=== PATIENT | female | born 1955 | race Caucasian/White ===

== ENCOUNTER 2018-05-31 19:48 | Emergency (ER) | payer BC, SELFPAY ==
[2018-05-31 19:53] VITALS: BP 137/76; PULSE 62; RESP 20; O2SAT 99; BMI 25.0
--- NOTE | 2018-05-31 19:56 | ED.FEMALEGU ---
HPI - Female Genitourinary General Chief complaint: Urogenital-Female Stated complaint: Kidney Stones Time Seen by Provider: 05/31/18 19:56 Source: patient Mode of arrival: ambulatory Limitations: no limitations History of Present Illness HPI Narrative: 63-year-old female here for evaluation of left-sided flank pain that is radiating around to her left lower abdomen. She states that 2 weeks ago she saw her primary care doctor worsened back pain and had blood in her urine. She was not started on any antibiotics. Was started on tamsulosin. Was told that she most likely had a kidney stone. Is scheduled for a CT scan to evaluate for this tomorrow. She states she has had a kidney stone in the past that passed on its own many years ago. She states that several hours ago she started having pain in her left abdomen. Some nausea and vomiting. No fevers. She states that she feels like she has a lot of problems urinating. No bowel changes. Related Data Previous Rx's Medication Instructions Recorded hydrocodone-acetaminophen [[place]] 1 tab PO Q4-6H PRN #10 tab 05/31/18 ondansetron [Zofran ODT] 4 mg PO Q6-8H PRN #10 tab 05/31/18 Allergies Allergy/AdvReac Type Severity Reaction Status Date / Time erythromycin base Allergy Verified 05/31/18 19:59 Review of Systems Constitutional Denies fever(s) Cardiovascular Denies chest pain and Denies dyspnea Respiratory Denies dyspnea Gastrointestinal Gastrointestinal: Reports abdominal pain (Lower left), Denies cramping, Denies diarrhea, Reports nausea and Reports vomiting Genitourinary Denies dysuria, Denies urinary incontinence, Reports urinary hesitancy and Denies vaginal discharge Musculoskeletal Reports back pain (Left CVA tenderness) Integumentary/Breasts Denies lesions and Denies rash Hematologic/Lymphatic Denies easy bleeding and Denies easy bruising [facility] Medical History Kidney stones (Acute) Surgical History No pertinent past surgical history (Acute) Social History Smoking Status: Never smoker Exam Initial Vital Signs Initial Vital Signs: Vital Signs Pulse Rate 62 10/07/18 19:53 Respiratory Rate 20 05/31/18 19:53 Blood Pressure 137/76 05/31/18 19:53 Pulse Oximetry 99 05/31/18 19:53 Const General: cooperative, No comfortable (Uncomfortable), well developed and well groomed Orientation: alert, awake and oriented x3 HENMT Head: normal to inspection and normocephalic Resp Effort & Inspection: normal respiratory effort Auscultation: clear to auscultation bilaterally Cardio Rate: regular rate Rhythm: regular rhythm GI Inspection: non-distended Palpation: soft and tender (Left lower quadrant) Back/Spine/Pelvis Back: No CVA tenderness Skin Lesions: no lesions Rashes: no rashes Neuro General: alert, awake and oriented x3 Extrem General: normal to inspection Psych Appearance: grossly normal and well kempt Course Orders Ordered: ED Orders 05/31/18 20:19 Urine Microscopic Stat 05/31/18 20:35 Comprehensive Metabolic Panel Stat 05/31/18 21:18 CT kidney ureter bladder (KUB) Stat Discontinued Medications Hydrocodone Bitart/Acetaminophen (Vicodin Prepack) 1 bottle MISC SEEINSTR ONE Stop: 05/31/18 23:57 Last Admin: 06/01/18 00:01 Dose: 1 bottle Lidocaine HCl 5.4 ml/ Sodium (Chloride) 55.4 mls @ 332.4 mls/hr IV NOW ONE Stop: 05/31/18 20:08 Last Infusion: 05/31/18 21:04 Dose: 0 mls/hr Admin: 05/31/18 20:45 Dose: 332.4 mls/hr Ketorolac Tromethamine (Toradol) 30 mg IV NOW ONE Stop: 05/31/18 20:08 Last Admin: 05/31/18 20:45 Dose: 30 mg Ondansetron HCl (Zofran Odt Prepack) 1 bottle MISC SEEINSTR ONE Stop: 05/31/18 23:57 Last Admin: 06/01/18 00:01 Dose: 1 bottle Vital Signs - 8 hr 05/31/18 19:53 05/31/18 20:44 05/31/18 21:30 Pulse Rate 62 68 73 Respiratory Rate 20 25 H 16 Blood Pressure 137/76 Blood Pressure [Left Arm] 110/76 117/71 Pulse Oximetry 99 96 95 05/31/18 22:00 05/31/18 22:46 05/31/18 23:54 Pulse Rate 73 65 72 Respiratory Rate 22 14 14 Blood Pressure Blood Pressure [Left Arm] 119/77 118/72 125/73 Pulse Oximetry 95 95 96 MDM - Female Genitourinary Lab Data Attestation: I reviewed the patient's lab results. Result diagrams: 05/31/18 20:35 Lab Results 05/31/18 05/31/18 Range/Units 20:19 20:35 Sodium 141 (137-145) mmol/L Potassium 3.8 (3.4-5.1) mmol/L Chloride 103 (98-107) mmol/L Carbon Dioxide 27 (22-32) mmol/L BUN 21 H (7-17) mg/dL Creatinine 0.90 (0.52-1.04) mg/dL Estimated GFR > 60.0 (>60) mL/min BUN/Creatinine Ratio 23.3 H (6-22) Glucose 118 H (80-110) mg/dL Calcium 9.8 (8.4-10.2) mg/dL Total Bilirubin 0.7 (0.2-1.3) mg/dL AST 36 (14-36) IU/L ALT 55 H (9-52) IU/L Alkaline Phosphatase 97 (38-126) U/L Total Protein 7.3 (6.3-8.2) g/dL Albumin 4.5 (3.5-5.0) g/dL Globulin 2.8 (1.7-4.1) g/dL Albumin/Globulin Ratio 1.6 (1.0-2.8) Urine RBC 10-30/hpf H (0-5/HPF) Urine WBC 5-10/hpf H (0-5/HPF) Ur Squamous Epith Cells 1-5 /hpf Calcium Oxalate Crystal Moderate H (None) Urine Bacteria Occasional (0-1) (None) Hyaline Casts 0-1/lpf (None) Urine Mucus 3+ H (Negative) Ur Culture Indicated? Cult not indicated Micro UA Comment Not Reportable Urine Dip Bedside Urine Glucose Negative Bedside Urine Bilirubin - Negative Bedside Urine Ketone +/- 5 Urine Specific [place] 1.030 Bedside Urine Occult Blood + Bedside Urine pH 6.0 Bedside Urine Protein + 30 Bedside Urine Urobilinogen - Negative Bedside Urine Nitrite - Negative Bedside Urine Leukocytes - Negative Esterase Imaging Data CT scan - abdomen: Radiologist's impression: Obstructing calculus of the left ureteral pelvic junction measuring 4 mm. Normal appendix. Small accessory spleen. MDM Narrative Medical decision making narrative: Patient with blood and bacteria in her urine however no signs of urinary tract infection. This was cultured. Will hold on antibiotics for now. Patient was informed of the pending culture. Patient has a normal creatinine. Had a complete resolution of her pain after the medications here in the emergency department. CT scan does show a [address] scan was done because the patient was scheduled to have a CT scan performed tomorrow ordered by her primary doctor. I informed the patient that we did not necessarily need a CT here in the ER however if she was going to go ahead and get the CT scan done tomorrow we could do it here and save her a trip. She opted to have a CT scan performed here. She was given a copy of the preliminary report and also a copy of the pictures on the CD. Patient was given return precautions. She was given a prepack of nausea medication and pain medication she was given prescriptions for both of these as well. Patient and her both expressed understanding and agreement with plan. Discharge Plan Departure Patient Disposition: Home Clinical Impression: Renal colic on left side, Left ureteral calculus Instructions: Kidney Stones (Alternative Therapy), DI for Kidney Stones Activity Restrictions/Additional Instructions: Keep all of your scheduled medical appointments. Take all medications as directed and as needed. Return to the emergency department for any new symptoms, worsening symptoms, fevers, inability to urinate or any other concerning symptoms. Prescriptions: New hydrocodone-acetaminophen [[place]] 5-325 mg tablet 1 tab PO Q4-6H PRN (Reason: pain) Qty: 10 RF: 0 ondansetron [Zofran ODT] 4 mg tablet,disintegrating 4 mg PO Q6-8H PRN (Reason: nausea and vomiting) Qty: 10 RF: 0
[2018-05-31 20:44] VITALS: BP 110/76; PULSE 68; RESP 25; O2SAT 96
[2018-05-31] MEDS: KETOROLAC 60 MG/2 ML VIAL 30 MG IV (20:45)
[2018-05-31] MEDS: LIDOCAINE 2% 5.4 ML in SODIUM CHLORIDE 0.9% 50 ML 332.4 ML IV (20:45)
--- NOTE | 2018-05-31 20:53 | PC.NURSE ---
pt reports having kidney stones in the past. this stone has been bothering her for a few weeks and she has a CT scheduled for tomorrow at . Pt reports having a stone in the past sent to pathology and being told it was made up of calcium. she has limited calcium and vit D intake since but has had reoccuring stones.
[2018-05-31 20:55] LABS: Alanine Aminotransferase 55 IU/L (9-52); Albumin 4.5 g/dL (3.5-5.0); Albumin Globulin Ratio 1.6 (1.0-2.8); Alkaline Phosphatase 97 U/L (38-126); Aspartate Aminotransferase 36 IU/L (14-36); BUN Creatinine Ratio 23.3 (6-22); Bilirubin Total 0.7 mg/dL (0.2-1.3); Blood Urea Nitrogen 21 mg/dL (7-17); Calcium 9.8 mg/dL (8.4-10.2); Carbon Dioxide 27 mmol/L (22-32); Chloride 103 mmol/L (98-107); Estimated Glomerular Filt Rate > 60.0 mL/min (>60); Globulin 2.8 g/dL (1.7-4.1); Glucose 118 mg/dL (80-110); HEMOLYSIS < 15 (0-50); Potassium 3.8 mmol/L (3.4-5.1); Sodium 141 mmol/L (137-145); Total Protein 7.3 g/dL (6.3-8.2)
--- NOTE | 2018-05-31 21:18 | DI.CT.S_ITS ---
PROCEDURE: CT KIDNEY URETER BLADDER (KUB) INDICATIONS: left flank pain concern for stone TECHNIQUE: Noncontrast 5 mm thick sections acquired from the diaphragms to the symphysis. 5 mm thick coronal and sagittal reformats were then performed. For radiation dose reduction, the following was used: automated exposure control, adjustment of mA and/or kV according to patient size. COMPARISON: None. FINDINGS: Image quality: Excellent. Lung bases: There is mild dependent atelectasis bilaterally. Heart size is normal. Urinary system: There is a small obstructing urinary stone at the left ureteropelvic junction measuring approximately 5 mm with mild left hydronephrosis. There is mild associated fat stranding adjacent to the renal pelvis. No additional renal stones identified. No right hydronephrosis. Both ureters appear non-dilated throughout their expected courses. The urinary bladder is nondistended. No calcified bladder stones. Other solid organs: There is a small hypodensity within the anterior left hepatic lobe measuring approximately 6 mm which is too small to characterize but likely represents a cyst. The gallbladder appears within normal limits without calcified gallstones. Pancreas is normal in contours. Spleen is normal in size. A small accessory spleen is noted. No adrenal nodules. Peritoneum and bowel: Unenhanced bowel loops demonstrate normal wall thickness and caliber. The appendix is normal in appearance. No free fluid or air. Nodes and vessels: No retroperitoneal or mesenteric adenopathy by size criteria. Aorta and inferior vena cava are normal in caliber. Abdominal wall: No ventral hernias. Pelvis: No free pelvic fluid. No inguinal hernias or adenopathy. Bones: No suspicious bony lesions. No vertebral body compression fractures. IMPRESSION: 1. Obstructing urinary stone at the left ureteropelvic junction measuring approximately 5 mm with associated mild left hydronephrosis. Concordant with preliminary interpretation. Dictated by: Tobi Price M.D. on 06/01/2018 at 7:51 Approved by: Tobi Price M.D. on 06/01/2018 at 7:55
[2018-05-31 21:30] VITALS: BP 117/71; PULSE 73; RESP 16; O2SAT 95
[2018-05-31 22:00] VITALS: BP 119/77; PULSE 73; RESP 22; O2SAT 95
[2018-05-31 22:35] LABS: RBC Urine 10-30/HPF (0-5/HPF); WBC Urine 5-10/HPF (0-5/HPF)
[2018-05-31 22:36] LABS: Bacteria Urine Occasional (0-1); Calcium Oxalate Crystals Urine Moderate; Hyaline Casts Urine 0-1/LPF; Mucus Urine 3+ (Negative); Squamous Epithelial Cell Urine 1-5 /HPF
[2018-05-31 22:37] LABS: Culture Indicated Urine Cult Not Indicated
[2018-05-31 22:46] VITALS: BP 118/72; PULSE 65; RESP 14; O2SAT 95
[2018-05-31 23:54] VITALS: BP 125/73; PULSE 72; RESP 14; O2SAT 96
[2018-06-01] MEDS: HYDROCODONE/ACET 5/325 PREPACK 1 BOTTLE MISC (00:01)
[2018-06-01] MEDS: ONDANSETRON 4 MG ODT PREPACK 1 BOTTLE MISC (00:01)
--- NOTE | 2018-06-04 18:03 | PC.NURSE ---
Pt states no kidney stone yet,denies any questions. Pt states you guys were excellant
== END 2018-06-01 00:17 | disposition home or self-care (01) ==
PROVIDERS: Emergency Provider Emergency Medicine
DX: N23 Unspecified renal colic (principal); N20.1 Calculus of ureter
CPT/HCPCS: 36591; 74176; 80053; 81003; 81015; 87086; 96365; 96375; 99283; 99284; J1885

== ENCOUNTER 2024-10-05 18:40 | Emergency (ER) | payer BC, SELFPAY ==
[2024-10-05 18:43] VITALS: BP 147/75; PULSE 90; RESP 18; TEMP 36.4; O2SAT 97; BMI 27.4
--- NOTE | 2024-10-05 18:46 | EKG_ITS ---
[place] [address] [address] [place] [id number] Test Date: 2024-10-05 Pat Name: Janis Bardales Department: Room: Gender: Female Language Path: YURY : 1955 Requested By: Order Number: [id number] Reading MD: Yann Peraza MD Measurements Intervals Cable Rate: 73 P: 60 ID: [id number] QRS: 47 QRSD: 78 T: 48 QT: 374 QTc: 412 Interpretive Statements Sinus rhythm with marked sinus arrhythmia Nonspecific ST abnormality Electronically Signed On 10-06-2024 8:02:00 PST by Yann Peraza MD
--- NOTE | 2024-10-05 18:46 | DI.RAD.S_ITS ---
PROCEDURE: XR CHEST 1V INDICATIONS: chest pain TECHNIQUE: One view of the chest was acquired. COMPARISON: None. FINDINGS: Surgical changes and devices: None. Lungs and pleura: Lungs are clear. No pleural effusions or pneumothorax. Mediastinum: Mediastinal contours appear normal. Heart size is normal. Bones and chest wall: No suspicious bony lesions. Overlying soft tissues appear unremarkable. Healed rib fracture deformity of the posterior right 7th rib. IMPRESSION: No acute cardiopulmonary abnormality is seen. Dictated by: Dexter Bingham M.D. on 10/05/2024 at 20:00 Approved by: Dexter Bingham M.D. on 10/05/2024 at 20:00
[2024-10-05] MEDS: ASPIRIN 81 MG CHEW TAB 324 MG PO (18:48)
[2024-10-05 19:02] LABS: Add Manual Diff / Slide Review NO; Basophils Absolute Auto 100 /uL (0-100); Basophils Percent Auto 0.8 % (0-2); Eosinophils Absolute Auto 100 /uL (0-450); Eosinophils Percent Auto 1.4 % (2-4); Hematocrit 42.5 % (36-46); Hemoglobin 14.2 g/dL (12.0-16.0); Lymphocytes Absolute Auto 2100 /uL (1100-4500); Lymphocytes Percent Auto 27.3 % (25-40); Mean Corpuscular HGB Conc 33.5 % (30-36); Mean Corpuscular Hemoglobin 30.2 PG (26-34); Mean Corpuscular Volume 89.9 fL (80-100); Monocytes Absolute Auto 600 /uL (0-900); Monocytes Percent Auto 7.5 % (3-14); Neutrophils Absolute Auto 4900 /uL (1500-7000); Platelet Count 363 X10^3/uL (150-400); Red Blood Cell Count 4.72 X10^6/uL (4.0-5.2); White Blood Cell Count 7.7 X10^3/uL (4.5-11.0)
[2024-10-05 19:10] LABS: Prothrombin Time 11.2 SECONDS (9.4-12.5)
[2024-10-05 19:12] LABS: PTT Partial Thromboplastin Tim 34 SECONDS (25.1-36.5)
[2024-10-05 19:14] LABS: Alanine Aminotransferase 23 IU/L (<35); Albumin 4.4 g/dL (3.5-5.0); Albumin Globulin Ratio 1.5 (1.0-2.8); Alkaline Phosphatase 110 U/L (38-126); Aspartate Aminotransferase 37 IU/L (14-36); BUN Creatinine Ratio 17.3 (6-22); Bilirubin Total 0.6 mg/dL (0.2-1.3); Blood Urea Nitrogen 14 mg/dL (7-17); Calcium 9.3 mg/dL (8.4-10.2); Carbon Dioxide 24 mmol/L (22-32); Chloride 105 mmol/L (98-107); Creatine Kinase 72 U/L (30-135); Estimated Glomerular Filt Rate > 60 mL/min (>60); Globulin 2.9 g/dL (1.7-4.1); Glucose 100 mg/dL (80-110); HEMOLYSIS < 15 (0-50); Lipase 104 U/L (23-300); Magnesium 1.9 mg/dL (1.6-2.3); Potassium 3.4 mmol/L (3.4-5.1); Sodium 137 mmol/L (137-145); Total Protein 7.3 g/dL (6.3-8.2)
[2024-10-05 19:25] LABS: NT-proBNP (BNP-Adult 18+) 92 pg/mL (<125); Troponin I < 0.012 ng/mL (0.01-0.034)
[2024-10-05 21:21] VITALS: BP 137/68; PULSE 64; TEMP 36.9; O2SAT 96
[2024-10-05 22:39] LABS: Troponin I < 0.012 ng/mL (0.01-0.034)
[2024-10-05 23:58] VITALS: PULSE 59; RESP 11; O2SAT 100
[2024-10-06] VITALS (9 sets, daily range): BP systolic 115–125; BP diastolic 62–74; PULSE 57–67; RESP 14–26; O2SAT 95–100
--- NOTE | 2024-10-06 00:11 | PC.NURSE ---
Pt reports history of Paroxysmal angina. She noted that since stopping her calcium channel blockers for her migraines that she noticed the spasms have started or are more notable.
--- NOTE | 2024-10-06 02:30 | ED.CHESTPAIN ---
HPI - Chest Pain General Chief Complaint: Chest Pain Stated Complaint: chest pain had 2 nitros Time Seen by Provider: 10/06/24 02:29 Source: patient Mode of arrival: Ambulatory Limitations: no limitations History of Present Illness HPI narrative: Patient is a 69-year-old female with history coronary spasm she does not have coronary artery disease presenting today with chest pain. She reports that she was driving when she would some right-sided chest pain did kind of go to her jaw she took 2 nitroglycerin before coming to the ED which did seem to help. She had another episode last week as well. She was able to do her exercise bike and walk 2 [place] she did not any problem. They were reading online that cold can exacerbate spasm. Pain is not reproduced with palpation or deep breathing. Have been able to review records from [facility] she had a CT coronary angiogram 01/17/2022 which shows 0% coronary artery stenosis. Patient now in the ED for a number of hours and symptoms have completely resolved. She reports that they have significant stress at home with her [id number] and traveling back and forth to [place] Related Data Previous Rx's Medication Instructions Recorded hydrocodone 5 mg-acetaminophen 325 1 tab PO Q4-6H PRN pain #10 tabs 05/31/18 mg tablet ([place]) ondansetron 4 mg disintegrating 4 mg PO Q6-8H PRN nausea and 05/31/18 tablet (Zofran ODT) vomiting #10 tabs Allergies Allergy/AdvReac Type Severity Reaction Status Date / Time erythromycin base Allergy Verified 10/05/24 18:47 Patient History Medical History (Updated 10/06/24 @ 02:59 by Mady Rose DO) Kidney stones Surgical History No pertinent past surgical history Social History Smoking Status: Never smoker Smoking Status: Never smoker alcohol intake frequency: other Exam Initial Vital Signs Initial Vital Signs: Vital Signs Temperature 97.5 F L 10/05/24 18:43 Pulse Rate 90 10/05/24 18:43 Respiratory Rate 18 10/05/24 18:43 Blood Pressure 147/75 H 10/05/24 18:43 Pulse Oximetry 97 10/05/24 18:43 Oxygen Delivery Method Room Air 10/05/24 18:43 GENERAL: Well-appearing, well-nourished and in no acute distress. HEENT: Head atraumatic,EOMI, pupils reactive, face symmetric, moist mucous membranes CARDIOVASCULAR: Regular rate and rhythm without murmurs, rubs or gallops. RESPIRATORY: Breath sounds equal bilaterally, no wheezes rales or rhonchi. ABDOMEN: Soft, nontender. Normoactive bowel sounds all 4 quadrants. No guarding or rebound. EXTREMITIES: Normal range of motion, no clubbing or edema. Neurovascularly intact NEUROLOGICAL: Alert and oriented x4.Normal gait and speech. Cranial nerves II through XII grossly intact. SKIN: Warm, dry, no laceration, no petechiae, no rashes or lesions. Course Orders Ordered: ED Orders 10/05/24 18:46 XR chest 1V Stat EKG-12 Lead Stat 10/05/24 18:50 Complete Blood Count AUTO DIFF Stat Comprehensive Metabolic Panel Stat Lipase Stat Magnesium Stat NT-proBNP (BNP-Adult 18+) Stat PTT Partial Thromboplastin Og Stat Prothrombin Time INR Stat Troponin & CK Cardiac Panel Stat 10/05/24 21:55 Trop I [Troponin I] Stat 10/06/24 02:48 EKG-12 Lead Stat Discontinued Medications Aspirin (Aspirin 81 Mg Chew Tab) 324 mg PO NOW ONE Stop: 10/05/24 18:47 Last Admin: 10/05/24 18:48 Dose: 324 mg Documented By: VY Vital Signs Vital signs: Vital Signs - 8 hr 10/05/24 21:21 10/05/24 23:58 10/06/24 00:00 Temperature 98.4 F Pulse Rate 64 59 L 62 Respiratory Rate 11 L 20 Blood Pressure 137/68 Pulse Oximetry 96 100 100 Oxygen Delivery Method Room Air 10/06/24 00:01 10/06/24 00:01 10/06/24 00:30 Temperature Pulse Rate 60 61 Respiratory Rate 26 H 16 Blood Pressure 121/68 Pulse Oximetry 100 97 Oxygen Delivery Method Room Air 10/06/24 00:31 10/06/24 00:31 10/06/24 01:00 Temperature Pulse Rate 67 Respiratory Rate 15 Blood Pressure 117/65 120/67 Pulse Oximetry 98 Oxygen Delivery Method 10/06/24 01:00 10/06/24 01:30 10/06/24 01:30 Temperature Pulse Rate 64 60 Respiratory Rate 19 15 Blood Pressure 116/62 Pulse Oximetry 98 98 Oxygen Delivery Method Room Air Room Air 10/06/24 02:00 10/06/24 02:01 10/06/24 02:01 Temperature Pulse Rate 57 L 57 L Respiratory Rate 14 23 Blood Pressure 115/66 Pulse Oximetry 98 97 Oxygen Delivery Method Room Air 10/06/24 02:30 10/06/24 02:30 Temperature Pulse Rate 65 Respiratory Rate 14 Blood Pressure 125/74 Pulse Oximetry 95 Oxygen Delivery Method MDM - Chest Pain Lab Data 10/05/24 18:50 10/05/24 18:50 Labs: Lab Results 10/05/24 10/05/24 Range/Units 18:50 21:55 WBC 7.7 (4.5-11.0) X10^3/uL RBC 4.72 (4.0-5.2) X10^6/uL Hgb 14.2 (12.0-16.0) g/dL Hct 42.5 (36-46) % MCV 89.9 (80-100) fL MCH 30.2 (26-34) PG MCHC 33.5 (30-36) % RDW 13.0 (11.6-14.8) % Plt Count 363 (150-400) X10^3/uL Neut % (Auto) 63.0 (50-75) % Lymph % (Auto) 27.3 (25-40) % [place] % (Auto) 7.5 (3-14) % Eos % (Auto) 1.4 L (2-4) % Baso % (Auto) 0.8 (0-2) % Neut # (Auto) 4900 (2151-7644) /uL Lymph # (Auto) 2100 (4611-5908) /uL [place] # (Auto) 600 (0-900) /uL Eos # (Auto) 100 (0-450) /uL Baso # (Auto) 100 (0-100) /uL PT 11.2 (9.4-12.5) SECONDS INR 1.0 (0.9-1.3) APTT 34 (25.1-36.5) SECONDS Sodium 137 (137-145) mmol/L Potassium 3.4 (3.4-5.1) mmol/L Chloride 105 (98-107) mmol/L Carbon Dioxide 24 (22-32) mmol/L BUN 14 (7-17) mg/dL Creatinine 0.81 (0.52-1.04) mg/dL Estimated GFR > 60 (>60) mL/min BUN/Creatinine Ratio 17.3 (6-22) Glucose 100 (80-110) mg/dL Calcium 9.3 (8.4-10.2) mg/dL Magnesium 1.9 (1.6-2.3) mg/dL Total Bilirubin 0.6 (0.2-1.3) mg/dL AST 37 H (14-36) IU/L ALT 23 (<35) IU/L Alkaline Phosphatase 110 (38-126) U/L Total Creatine Kinase 72 (30-135) U/L Troponin I < 0.012 < 0.012 (0.01-0.034) ng/mL NT-Pro-B Natriuret Pep 92 (<125) pg/mL Total Protein 7.3 (6.3-8.2) g/dL Albumin 4.4 (3.5-5.0) g/dL Globulin 2.9 (1.7-4.1) g/dL Albumin/Globulin Ratio 1.5 (1.0-2.8) Lipase 104 (23-300) U/L Imaging Data Chest x-ray: Radiologist's Impression: PROCEDURE: XR CHEST 1V INDICATIONS: chest pain TECHNIQUE: One view of the chest was acquired. COMPARISON: None. FINDINGS: Surgical changes and devices: None. Lungs and pleura: Lungs are clear. No pleural effusions or pneumothorax. Mediastinum: Mediastinal contours appear normal. Heart size is normal. Bones and chest wall: No suspicious bony lesions. Overlying soft tissues appear unremarkable. Healed rib fracture deformity of the posterior right 7th rib. IMPRESSION: No acute cardiopulmonary abnormality is seen. Dictated by: Dexter Bingham M.D. on 10/05/2024 at 20:00 Approved by: Dexter Bingham M.D. on 10/05/2024 at 20:00 ECG Data Attestation: I personally reviewed and interpreted this ECG as follows: Interpretation: Sinus rhythm rate 73 DC interval 156 QRS [address] changes no ST depressions no priors to compare EKG 2 sinus rhythm rate 56 no ischemia MDM Narrative Medical decision making narrative: MDM CC: Chest pain Complicating co-morbidities: Known coronary vasospasm GERD obstructive sleep apnea Medical records reviewed: CT coronary angio 01/17/22 IMPRESSION Left dominant coronary circulation. No coronary atherosclerosis or stenosis. ? CAD-RADS Score: CAD-RADS 0: 0% maximal coronary artery stenosis, documented absence of CAD. ? Extracardiac findings were reviewed by Dr. Cheikh Vela (attending thoracic radiologist) Differential considered: Coronary vasospasm acute coronary syndrome musculoskeletal Exam documented above, pertinent findings include: Well-appearing 69-year-old female no respiratory distress Lab Test results independently reviewed as above. Pertinent findings: Troponin negative x2 CBC shows no leukocytosis or anemia CMP electrolyte abnormalities no MARCK Independently reviewed EKG as above No ST elevations no evidence ischemia Imaging studies independently reviewed: No acute cardiopulmonary process Treatments: Aspirin Re-evaluations: Patient remains pain-free while in the emergency department Discussion: Patient is a 69-year-old female who has known coronary artery spasm presenting today with chest pain. It did resolve after 2 nitroglycerin. 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 She had a CT coronary angiogram done 3 years ago showed a calcium score of 0. She was given nitroglycerin by her primary care provider month ago. She would like to get set up with cardiology locally. She is 2- troponins no EKGs changes. At this time recommend outpatient follow-up return as needed Discharge Plan Departure Patient Disposition: Home Clinical Impression: Coronary artery vasospasm Instructions: DI for Angina Activity Restrictions/Additional Instructions: *You have been diagnosed with coronary vasospasm *What to do: At this time you do need to follow up with Cardiology. May try [facility] or [facility] *Continue to take medications as directed You may take nitroglycerin if you are experiencing pain however if you are requiring more than 2 nitroglycerin we must see you in the emergency department *Follow up with your primary care provider in 2-3 days or call [phone] *Return to ER if you should have increased frequency in chest pain shortness of breath or any new, worsening or concerning symptoms Prescriptions: No Action hydrocodone-acetaminophen [[place]] 5-325 mg tablet 1 tab PO Q4-6H PRN (Reason: pain) Qty: 10 0RF ondansetron [Zofran ODT] 4 mg tablet,disintegrating 4 mg PO Q6-8H PRN (Reason: nausea and vomiting) Qty: 10 0RF Stand Alone Forms: Patient Portal/API/Survey
--- NOTE | 2024-10-06 02:54 | EKG_ITS ---
[address] [address] Test Date: 2024-10-06 Pat Name: Jnais Bardales Department: [facility] Room: Gender: Female Defense Attorney: : 1955 Requested By: Order Number: [id number] Reading MD: Yann Peraza MD Measurements Intervals [place] Rate: 56 P: 34 ME: 174 QRS: 42 QRSD: 84 T: 34 QT: 424 QTc: 409 Interpretive Statements Sinus bradycardia Electronically Signed On 10-06-2024 8:02:32 PST by Yann Peraza MD
== END 2024-10-06 03:05 | disposition home or self-care (01) ==
PROVIDERS: Emergency Provider Emergency Medicine
DX: I20.1 Angina pectoris with documented spasm (principal); R07.9 Chest pain, unspecified; R00.1 Bradycardia, unspecified
CPT/HCPCS: 36415; 71045; 80053; 82550; 83690; 83735; 83880; 84484; 85025; 85610; 85730; 93005; 93010; 99284